=== PATIENT | female | born 1975 | race African-American/Black ===

== ENCOUNTER 2021-08-08 22:01 | Emergency (ER) | payer SELFPAY ==
[~2021-08-08] VITALS: Ht 157.5 cm; Wt 64.0 kg
[2021-08-08] MEDS ORDERED: KETOROLAC 15MG/ML VIAL IV ONE (23:30)
[2021-08-08] MEDS ORDERED: SODIUM CHLORIDE 0.9% 1,000 ML IV ONE (23:30)
[2021-08-08 23:49] LABS: HEMATOCRIT. 42.4 % (36.0-48.0); HEMOGLOBIN. 14.2 g/dL (12.0-16.0); MEAN CORPUSCULAR HEMOGLOBIN 31.6 pg (28.0-32.0); MEAN CORPUSCULAR VOLUME 94.5 fL (81.0-99.0); MEAN PLATELET VOLUME 6.8 fl (7.4-10.4); PLATELET 315 x1000/uL (130-400); RED BLOOD CELL COUNT 4.49 mill/uL (4.2-5.4); RED CELL DISTRIBUTION WIDTH 14.1 % (11.6-14.6)
[2021-08-08 23:52] LABS: CHLORIDE 99 mEq/L (98-107)
[2021-08-08 23:56] LABS: ETHANOL BLOOD < 10 mg/dL
[2021-08-08 23:59] LABS: HCG SCREEN NEGATIVE
[2021-08-09] MEDS ORDERED: IOHEXOL-350 100 ML BOTTLE ONE (02:31)
[2021-08-09 03:25] LABS: *BENZODIAZEPINES SCREEN URINE NEGATIVE (NEGATIVE); *COCAINE SCREEN URINE NEGATIVE (NEGATIVE); METHADONE URINE SCREEN NEGATIVE (NEGATIVE); OPIATES URINE SCREEN NEGATIVE (NEGATIVE)
[2021-08-09 03:26] LABS: *AMPHETAMINES SCREEN URINE NEGATIVE (NEGATIVE); *BARBITURATES SCREEN URINE NEGATIVE (NEGATIVE); CANNABINOID URINE SCREEN NEGATIVE (NEGATIVE); PHENCYCLIDINE URINE SCREEN NEGATIVE (NEGATIVE)
[2021-08-09] MEDS ORDERED: ONDANSETRON HCL 4MG/2ML INJ IV ONE (03:45)
[2021-08-09 04:00] VITALS: BP 94/58
[2021-08-09] MEDS ORDERED: ONDA4TAB5 MT (04:11)
[2021-08-09] MEDS ORDERED: IBUP-2028 MT (04:11)
[2021-08-09 05:28] LABS: PLATELET ESTIMATE NORMAL
== END 2021-08-09 04:30 | disposition home or self-care (01) ==
LOC: ER 22:01
DX: K80.20 Calculus of gallbladder without cholecystitis without obstruction (principal)
CPT/HCPCS: 36415; 71045; 71275; 76705; 80053; 80305; 80320; 83690; 83880; 84484; 84703; 85025; 85379; 93005; 96361; 96374; 96375; 99285; J1885; J2405; J7030; Q9967; G0480